=== PATIENT | male | born 1990 | race Caucasian/White ===

== ENCOUNTER 2018-01-20 07:55 | Outpatient (CLI) | payer OTHER ==
[~2018-01-20] VITALS: Ht 172.7 cm; Wt 97.9 kg
[2018-01-20 08:25] VITALS: BP 117/94; PULSE 96; TEMP 98.6
[2018-01-20] MEDS ORDERED: FLEXERIL 1010 MG/TAB PO (08:32)
[2018-01-20] MEDS ORDERED: TOPROL XL 25MG25 MG PO (08:33)
[2018-01-20] MEDS ORDERED: NAPROSYN500 MG PO (08:33)
[2018-01-20 09:09] VITALS: BP 109/87; PULSE 64
[2018-01-20] MEDS ORDERED: CEPHALEXIN500 M1 PO (09:10)
[2018-01-20 09:35] VITALS: BP 120/83; PULSE 66
[2018-01-20 09:50] VITALS: BP 130/90; PULSE 68
[2018-01-20 10:05] VITALS: BP 125/93; PULSE 67
== END 2018-01-20 10:20 | disposition home or self-care (01) ==
LOC: COL.CAR 07:55
DX: R55 Syncope and collapse (principal); R00.0 Tachycardia, unspecified